=== PATIENT | female | born 1985 | race Caucasian/White ===

== ENCOUNTER 2022-05-17 23:02 | Emergency (ER) | payer OTHER ==
[~2022-05-17] VITALS: Ht 154.9 cm; Wt 95.5 kg
[2022-05-17] MEDS ORDERED: DULO-113 PO (23:13)
[2022-05-17] MEDS ORDERED: VALA500T42 PO (23:13)
[2022-05-18 00:50] VITALS: BP 135/66
[2022-05-18] MEDS ORDERED: FLUORESCEIN SODIUM 1 MG STRIP ONE (01:00)
[2022-05-18] MEDS ORDERED: GENTAMICIN SULFATE 0.3% OPHTHALMIC SOLUTION 5 ML OD ONE (01:00)
[2022-05-18] MEDS ORDERED: ACET-66 PO (01:06)
== END 2022-05-18 01:25 | disposition home or self-care (01) ==
LOC: EMS 23:06
DX: S00.11XA Contusion of right eyelid and periocular area, initial encounter (principal); H10.31 Unspecified acute conjunctivitis, right eye; F41.9 Anxiety disorder, unspecified; F32.A Depression, unspecified; F43.10 Post-traumatic stress disorder, unspecified; Z88.0 Allergy status to penicillin; Z91.040 Latex allergy status; Z98.890 Other specified postprocedural states; X58.XXXA Exposure to other specified factors, initial encounter; Y93.89 Activity, other specified; Y92.89 Other specified places as the place of occurrence of the external cause; Y99.8 Other external cause status
CPT/HCPCS: 99282; Z7502; Z7610